=== PATIENT | female | born 1970 | race Caucasian/White ===

== ENCOUNTER 2022-08-10 21:00 | Inpatient (IN) | payer OTHER ==
[2022-08-10] MEDS ORDERED: HYDROmorphone 0.5 MG/0.5 ML Syringe IVPUSH ONE ×2 (21:15→21:42)
[2022-08-10] MEDS ORDERED: Sodium Chloride 0.9% 1,000 ML IV ONE (21:20)
[2022-08-10] MEDS ORDERED: Metoclopramide 10 MG/2 ML SDV IVPUSH ONE (21:20)
[2022-08-10] MEDS ORDERED: Morphine 2 MG/ML SYRINGE IVPUSH ONE (23:00)
[2022-08-11] MEDS ORDERED: fentaNYL 50 MCG/ML SDV IVPUSH ONE ×7 (00:36→14:00)
[2022-08-11] MEDS ORDERED: Sodium Chloride 0.9% 1,000 ML IV ONE ×6 (01:40→21:45)
[2022-08-11] MEDS ORDERED: HYDROmorphone 0.5 MG/0.5 ML Syringe IVPUSH ONE ×5 (03:03→22:40)
[2022-08-11] MEDS ORDERED: Pantoprazole 40 MG Tab.CR PO ONE (07:00)
[2022-08-11] MEDS ORDERED: Heparin Sodium 5,000 Units/ML Vial SUBCUT ONE ×2 (08:00→20:00)
[2022-08-11] MEDS ORDERED: Hydrochlorothiazide 25 MG Tab PO ONE (08:00)
[2022-08-11] MEDS ORDERED: Loratadine 10 MG Tab PO ONE (08:00)
[2022-08-11] MEDS ORDERED: Budesonide 0.5 MG/2 ML Neb Susp INH ONE ×2 (08:00→20:00)
[2022-08-11] MEDS ORDERED: Magnesium Sulfate (4.06 MEQ/ML) 1 GM/2 ML SDV IV ONE (10:30)
[2022-08-11] MEDS ORDERED: Ketorolac 30 MG/ML SDV IVPUSH ONE (14:45)
[2022-08-11] MEDS ORDERED: Acetaminophen/oxyCODONE 325-5 MG Tab PO ONE (18:00)
[2022-08-12] MEDS ORDERED: Sodium Chloride 0.9% 1,000 ML IV ONE ×5 (01:55→18:25)
[2022-08-12] MEDS ORDERED: fentaNYL 50 MCG/ML SDV IVPUSH ONE ×3 (02:21→15:41)
[2022-08-12] MEDS ORDERED: Acetaminophen/oxyCODONE 325-5 MG Tab PO ONE ×4 (06:00→18:00)
[2022-08-12] MEDS ORDERED: Pantoprazole 40 MG Tab.CR PO ONE (07:00)
[2022-08-12] MEDS ORDERED: Potassium Chloride 10 MEQ Tab.ER PO ONE (08:00)
[2022-08-12] MEDS ORDERED: Loratadine 10 MG Tab PO ONE (08:00)
[2022-08-12] MEDS ORDERED: Hydrochlorothiazide 25 MG Tab PO ONE (08:00)
[2022-08-12] MEDS ORDERED: Heparin Sodium 5,000 Units/ML Vial SUBCUT ONE (08:00)
[2022-08-12] MEDS ORDERED: Budesonide 0.5 MG/2 ML Neb Susp INH ONE (08:00)
[2022-08-12] MEDS ORDERED: Iopamidol 755 Mg/ML 100 ML Bottle IV ONE (12:16)
[2022-08-12] MEDS ORDERED: HYDROmorphone 0.5 MG/0.5 ML Syringe IVPUSH ONE (12:24)
[2022-08-12] MEDS ORDERED: Acetaminophen 500 MG Tab PO ONE (18:41)
[2022-09-04 12:00] LABS: CHLORIDE,CL 98 mEq/L (98-106); SODIUM,NA 139 mEq/L (136-145)
[2022-09-04 12:01] LABS: ESTIMATED GFR 55 mL/min (>=60)
[2022-09-05 10:24] LABS: CHLORIDE,CL 101 mEq/L (98-106); ESTIMATED GFR 69 mL/min (>=60); SODIUM,NA 138 mEq/L (136-145)
== END 2022-08-12 21:20 | DRG 440 ==
LOC: CC.ZCENSUS 21:00
PROVIDERS: ADMIT Nurse Practitioner Family; ATTEND Nurse Practitioner Family
DX: K85.91 Acute pancreatitis with uninfected necrosis, unspecified (principal); Z88.0 Allergy status to penicillin; Z91.030 Bee allergy status
CPT/HCPCS: 36415; 74178; 80053; 82150; 83605; 83690; 85025; 86140; 87040; A9270-GY; J1170; J1644; J1885; J2270; J2765; J3010; J3475; J7030; Q9967